=== PATIENT | male | born 1940 | race Caucasian/White ===

== ENCOUNTER → 2024-06-04 10:05 | Outpatient (REF) | payer OTHER, SELFPAY | LOC: HWRCS 10:05 | PROVIDERS: ATTENDING PHYSICIAN Internal Medicine Cardiovascular Disease; FAMILY PHYSICIAN Family Medicine | DX: I48.21 Permanent atrial fibrillation (principal); I10 Essential (primary) hypertension; I34.0 Nonrheumatic mitral (valve) insufficiency | CPT/HCPCS: 93306 ==

== ENCOUNTER → 2024-11-12 12:09 | Outpatient (REF) | payer OTHER, SELFPAY | LOC: HWRAD 12:09 | PROVIDERS: ATTENDING PHYSICIAN Physician Assistant Medical | DX: I48.91 Unspecified atrial fibrillation (principal); R60.0 Localized edema; R06.01 Orthopnea; R06.09 Other forms of dyspnea | CPT/HCPCS: 71046 ==

== ENCOUNTER → 2024-11-26 10:37 | Outpatient (REF) | payer OTHER, SELFPAY | LOC: HWRCS 10:37 | PROVIDERS: ATTENDING PHYSICIAN Physician Assistant Medical | DX: I48.91 Unspecified atrial fibrillation (principal); R60.0 Localized edema; R06.01 Orthopnea; R06.09 Other forms of dyspnea | CPT/HCPCS: 93306 ==

== ENCOUNTER → 2025-04-06 08:59 | Outpatient (REF) | payer OTHER, SELFPAY | LOC: HWRCS 08:59 | PROVIDERS: ATTENDING PHYSICIAN Internal Medicine Cardiovascular Disease; FAMILY PHYSICIAN Family Medicine | DX: I50.32 Chronic diastolic (congestive) heart failure (principal); I34.0 Nonrheumatic mitral (valve) insufficiency | CPT/HCPCS: 93306 ==

== ENCOUNTER → 2025-05-11 09:57 | Outpatient (REF) | payer OTHER, SELFPAY | LOC: HWRAD 09:57 | PROVIDERS: ATTENDING PHYSICIAN Internal Medicine Nephrology; FAMILY PHYSICIAN Family Medicine | DX: Q61.3 Polycystic kidney, unspecified (principal) | CPT/HCPCS: 76770 ==

== ENCOUNTER → 2025-11-28 11:46 | Outpatient (REF) | payer OTHER, SELFPAY | LOC: RAD 11:46 | PROVIDERS: ATTENDING PHYSICIAN Family Medicine | DX: R93.89 Abnormal findings on diagnostic imaging of other specified body structures (principal) | CPT/HCPCS: 71260; Q9967 ==